=== PATIENT | female | born 1950 ===

== ENCOUNTER 2017-06-29 00:46 | Emergency (ER) | payer MEDICARE ==
[2017-06-29 00:46] VITALS: BMI 32.4
[2017-06-29 01:06] VITALS: BP 114/72; PULSE 58; RESP 18; TEMP 97.4; O2SAT 98
--- NOTE | 2017-06-29 01:44 | ED PDOC ---
HPI: CCC, URI, Sore Throat Time Seen by Provider: 06/29/17 01:12 Chief Complaint (Nursing): Cough, Cold, Congestion History Per: Patient History/Exam Limitations: no limitations Onset/Duration Of Symptoms: Days Current Symptoms Are (Timing): Still Present Location Of Pain: Throat Associated Symptoms: Fever, Sore Throat, Cough, Sputum (clear) Additional Complaint(s): pt. arrives with daughter w/ complaints of mainly sore throat, also with cough productive of clear phlegm. resolved fevers, no chills. no recent travel or sick contacts. no n/v/d. no cp/sob. received flu shot last month. Past Medical History Reviewed: Historical Data, Nursing Documentation Vital Signs: Last Vital Signs Temp 97.4 F L 06/29/17 01:00 Pulse 58 L 06/29/17 01:00 Resp 18 06/29/17 01:00 BP 114/72 06/29/17 01:00 Pulse Ox 98 06/29/17 01:44 - Medical History PMH: HTN, Hyperthyroidism Denies: Chronic Kidney Disease - Family History Family History: States: Unknown Family Hx - Immunization History Hx Tetanus Toxoid Vaccination: No Hx Influenza Vaccination: No Hx Pneumococcal Vaccination: No - Home Medications Home Medications: Ambulatory Orders Medication Instructions Recorded Losartan/Hydrochlorothiazide 1 tab PO DAILY 11/15/15 [Losartan-Hctz 100-12.5 mg Tab] Multivitamin [Multivitamins] 1 tab PO DAILY 11/15/15 methIMAzole [Tapazole] 10 mg PO DAILY 11/15/15 Ferrous Sulfate [Feosol] 325 mg PO DAILY 11/22/15 Pilocarpine [Salagen] 5 mg PO QID 11/22/15 Benzonatate [Tessalon Perle] 100 mg PO TID #20 capsule 06/29/17 Ibuprofen [Motrin Tab] 600 mg PO Q6 #30 tab 06/29/17 - Allergies Allergies/Adverse Reactions: Allergies Allergy/AdvReac Type Severity Reaction Status Date / Time Iodine and Iodide Containing Allergy SHORTNESS Verified 06/29/17 01:00 Produc OF BREATH Penicillins Allergy SHORTNESS Verified 06/29/17 01:00 OF BREATH Curb-65 Severity Score - CURB-65 Severity Score Confusion: No Bun >19mg/dl (>7mmol/L): No Respiratory Rate greater than/equal to 30: No Systolic BP <90 or Diastolic BP less than/equal 60mmHg: No Age >64: No Curb-65 Score: 0 Percentage 30-day mortality: 0.6% Review of Systems ROS Statement: Except As Marked, All Systems Reviewed And Found Negative ENT: Positive for: Throat Pain Respiratory: Positive for: Cough Physical Exam - Physical Exam Appears: Positive for: Well, Non-toxic, No Acute Distress Head Exam: Positive for: ATRAUMATIC, NORMAL INSPECTION, NORMOCEPHALIC Skin: Positive for: Normal Color, Warm, DRY Eye Exam: Positive for: EOMI, Normal appearance, PERRL ENT: Positive for: Normal ENT Inspection Neck: Positive for: Normal, Painless ROM Cardiovascular/Chest: Positive for: Regular Rate, Rhythm Respiratory: Positive for: CNT, Normal Breath Sounds Gastrointestinal/Abdominal: Positive for: Normal Exam, Bowel Sounds, Soft Back: Positive for: Normal Inspection Extremity: Positive for: Normal ROM Neurologic/Psych: Positive for: Alert, Oriented - ECG O2 Sat by Pulse Oximetry: 98 Pulse Ox Interpretation: Normal Medical Decision Making Medical Decision Making: A/P: Pt. arriving with sore throat, cough, congestion -completely normal vital signs and PE -explained to patient symptoms are likely viral -will get CXR to r/o PNA and rapid strep and influenza 230 Results explained to pt, encouraged f/u w/ PMD in 2 days. Return precautions discussed. Disposition - Clinical Impression Clinical Impression: Cough - Disposition Referrals: Fredis Montes MD [Staff Provider] - Disposition: Routine/Home Disposition Time: 02:30 Condition: STABLE Prescriptions: Benzonatate [Tessalon Perle] 100 mg PO TID #20 capsule Ibuprofen [Motrin Tab] 600 mg PO Q6 #30 tab Instructions: Upper Respiratory Infection (ED), Acute Cough (ED) Forms: [employer] (Jamaican) Print Language: UGANDAN
--- NOTE | 2017-06-29 10:19 | RAD ---
HISTORY: cough, sore throat, fever COMPARISON: Chest radiographs 06/27/2016. TECHNIQUE: Chest PA and lateral FINDINGS: LUNGS: No active pulmonary disease. PLEURA: No significant pleural effusion identified. No pneumothorax apparent. CARDIOVASCULAR: Normal. OSSEOUS STRUCTURES: No significant abnormalities. VISUALIZED UPPER ABDOMEN: Normal. OTHER FINDINGS: None. IMPRESSION: No interval acute cardiopulmonary disease appreciated.
== END 2017-06-29 03:10 | disposition home or self-care (01) ==
LOC: H.ER 00:46
DX: R05 Cough (principal); E05.90 Thyrotoxicosis, unspecified without thyrotoxic crisis or storm; I10 Essential (primary) hypertension; Z88.0 Allergy status to penicillin

== ENCOUNTER 2018-03-24 14:37 | Emergency (ER) | payer MEDICARE ==
[2018-03-24 14:37] VITALS: BMI 31.6
[2018-03-24] MEDS ORDERED: Naproxen 500 MG TAB PO STA (15:40)
[2018-03-24] MEDS ORDERED: Naproxen 500 MG TAB PO ONE (15:57)
--- NOTE | 2018-03-24 15:57 | RAD ---
Date of service: 03/24/2018 PROCEDURE: Radiographs of the Right Shoulder HISTORY: joint pain COMPARISON: 08/05/2008 FINDINGS: BONES: Bone alignment and mineralization are normal. There is no acute displaced fracture or bone destruction. JOINTS: There is mild degenerative osteoarthrosis in the acromioclavicular joint. There are degenerative cystic changes in the greater tuberosity of the humerus. The glenohumeral joint is normal. SOFT TISSUES: Normal. OTHER FINDINGS: None. IMPRESSION: Mild degenerative osteoarthrosis in the acromioclavicular joint. No acute fracture or dislocation
--- NOTE | 2018-03-24 16:01 | ED PDOC ---
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 Patient states pain worsens with movement. Patient reports of taking Tylenol earlier this morning with no relief. Patient is also right hand dominant. Patient is expressing concern that her high blood pressure was contributing to her symptoms, however, readings at home and in the ED were normal. Otherwise: (-) prior shoulder injury/surgery, (- ) chest pain, (-) shortness of breath, (-) falls, (-) headache, (-) neck pain, ( -) fever, (-) chills. PMD: Fredis Montes Past Medical History Reviewed: Historical Data, Nursing Documentation, Vital Signs Vital Signs: Last Vital Signs Temp 97.5 F L 03/24/18 14:54 Pulse 56 L 03/24/18 14:54 Resp 20 03/24/18 14:54 BP 134/74 03/24/18 14:54 Pulse Ox 99 03/24/18 14:54 - Medical History PMH: HTN, Hypercholesterolemia, Hyperthyroidism - Surgical History Surgical History: Hernia Repair Other surgeries: Gastric Bypass - Family History Family History: States: Unknown Family Hx - Home Medications Home Medications: Ambulatory Orders Medication Instructions Recorded Losartan/Hydrochlorothiazide 1 tab PO DAILY 11/15/15 [Losartan-Hctz 100-12.5 mg Tab] Multivitamin [Multivitamins] 1 tab PO DAILY 11/15/15 methIMAzole [Tapazole] 10 mg PO DAILY 11/15/15 Ferrous Sulfate [Feosol] 325 mg PO DAILY 11/22/15 Pilocarpine [Salagen] 5 mg PO QID 11/22/15 Benzonatate [Tessalon Perle] 100 mg PO TID #20 capsule 06/29/17 Ibuprofen [Motrin Tab] 600 mg PO Q6 #30 tab 06/29/17 Aspirin [Aspirin Chewable] 81 mg PO 01/03/18 Cholecalciferol [Vitamin D] 50,000 iu PO 01/03/18 Iron Ps Cmplx/Vit B12/FA [Ferrex 01/03/18 150 Forte Capsule] Meloxicam [Mobic] 15 mg PO DAILY #10 tab 03/24/18 - Allergies Allergies/Adverse Reactions: Allergies Allergy/AdvReac Type Severity Reaction Status Date / Time Iodine and Iodide Containing Allergy SHORTNESS Verified 06/29/17 01:00 Produc OF BREATH Penicillins Allergy SHORTNESS Verified 06/29/17 01:00 OF BREATH Review of Systems ROS Statement: Except As Marked, All Systems Reviewed And Found Negative Constitutional: Negative for: Fever, Chills Cardiovascular: Negative for: Chest Pain Respiratory: Negative for: Shortness of Breath Musculoskeletal: Positive for: Shoulder Pain (right ). Negative for: Neck Pain Neurological: Negative for: Headache Physical Exam - Reviewed Nursing Documentation Reviewed: Yes Vital Signs Reviewed: Yes - Physical Exam Comments: GENERAL APPEARANCE: Patient is resting comfortably, awake, alert, oriented x 3, in no acute distress. SKIN: Warm, dry; (-) cyanosis. NECK: Supple, FROM ENT: Mucus membranes moist. Airway patent, (-) stridor. SHOULDER: (+) Pain with abduction and extension of the right shoulder otherwise ROM is intact. (+) Diffuse Tenderness, (-) erythema, (-) overlying skin changes , (-) effusion, (-) ecchymosis, (-) deformity. Remainder of upper extremity: (- ) tenderness with full ROM. Sensation intact throughout (+) distal pulses. RESPIRATORY: (-) rales (-) rhonchi (-) wheezing; breath sounds equal bilaterally. Respirations even and nonlabored, speaking in full sentences. CARDIAC: (-) irregularity NEURO AND PSYCH: Mental status as above. (-) facial asymmetry (-) focal deficit. Speech clear, gait steady. - ECG O2 Sat by Pulse Oximetry: 99 (RA) Pulse Ox Interpretation: Normal Medical Decision Making Medical Decision Making: Time: 1540 Impression: Acute Shoulder Pain Plan: -- Naproxen 500 mg PO -- Shoulder Right XR -- Re-evaluation 1600 Shoulder XR reviewed, radiology report follows Date of service: 03/24/2018 PROCEDURE: Radiographs of the Right Shoulder HISTORY: joint pain COMPARISON: 08/05/2008 FINDINGS: BONES: Bone alignment and mineralization are normal. There is no acute displaced fracture or bone destruction. JOINTS: There is mild degenerative osteoarthrosis in the acromioclavicular joint. There are degenerative cystic changes in the greater tuberosity of the humerus. The glenohumeral joint is normal. SOFT TISSUES: Normal. OTHER FINDINGS: None. IMPRESSION: Mild degenerative osteoarthrosis in the acromioclavicular joint. No acute fracture or dislocation On re-evaluation, patient reports improvement of symptoms. On exam, patient remains AAOx3, in no acute distress. On exam, neck is supple, lungs CTA, cardiac RRR, neuro exam shows no focal findings. VSS, stable for discharge. Diagnostic results d/w the patient in great detail. Dx of acute shoulder pain, osteoarthritis d/w the patient. Based on history, exam and diagnostic results plan will be for discharge and outpatient follow up. Advised to follow up with primary care physician in 1-2 days without fail. Advised to take medication as prescribed. Return to the emergency room at any time for any new or worsening symptoms. Patient states she fully agrees with and understands discharge instructions. States that she agrees with the plan and disposition. Verbalized and repeated discharge instructions and plan. I have given the patient opportunity to ask any additional questions. Scribe Attestation: Documented by Vladimir Valdez, acting as a scribe for Ely Sosa PA-C. Provider Scribe Attestation: All medical record entries made by the Scribe were at my direction and personally dictated by me. I have reviewed the chart and agree that the record accurately reflects my personal performance of the history, physical exam, medical decision making, and the department course for this patient. I have also personally directed, reviewed, and agree with the discharge instructions and disposition. Disposition - Clinical Impression Clinical Impression: Shoulder pain, Osteoarthritis - Patient ED Disposition Is Patient to be Admitted: No Counseled Patient/Family Regarding: Studies Performed, Diagnosis, Need For Followup, Rx Given - Disposition Referrals: Booker Alatorre MD [Medical Doctor] - Fredis Montes MD [Staff Provider] - Disposition: Routine/Home Disposition Time: 16:02 Condition: STABLE Additional Instructions: La atencin mdica de emergencia que recibi hoy estaba dirigida a polina sntomas agudos. Si le prescribieron algn medicamento, llnelo y tome segn las indicaciones. Polina sntomas pueden tardar varios hoyt en resolverse. Regrese al Departamento de Emergencia si polina sntomas empeoran, no mejoran o si tiene alg n otro problema. Comunquese con reveles mdico en 2 hoyt para em reevaluacin y seguimiento / o llame a cha de los mdicos / clnicas a los que painter referido y que figura en el formulario de Informacin de visitas del paciente que se incluye en reveles paquete de mercy. Traiga todos los documentos que recibi al momento del mercy junto con los medicamentos que est tomando en reveles visita de seguimiento. Nuestro tratamiento no puede reemplazar la atencin mdica en curso por parte de un proveedor de atencin primaria (PCP) fuera del departamento de emergencias. Prescriptions: Meloxicam [Mobic] 15 mg PO DAILY #10 tab Instructions: Osteoarthritis, Shoulder Pain (DC) Forms: [employer] (Malawian) Print Language: [place] - POA Present On Arrival: None
[2018-03-24 16:22] VITALS: BP 130/72; PULSE 70; RESP 18; TEMP 98
[2018-03-25 19:06] VITALS: O2SAT 99
== END 2018-03-24 16:22 | disposition home or self-care (01) ==
LOC: H.ER 14:37
DX: M19.011 Primary osteoarthritis, right shoulder (principal)

== ENCOUNTER 2018-06-30 08:10 | Day surgery (SDC) | payer MEDICARE ==
[2018-06-30] MEDS ORDERED: Lactated Ringer's 500 ML IV ONE (08:58)
[2018-06-30 09:04] VITALS: O2SAT 100
[2018-06-30] MEDS ORDERED: Propofol 10 mg/ml Inj (20 ML) ONE (11:20)
[2018-06-30 11:51] VITALS: TEMP 97
[2018-07-01 00:06] VITALS: BP 126/58; PULSE 52; RESP 17
== END 2018-06-30 12:30 | disposition home or self-care (01) ==
LOC: H.ENDO 08:10
PROVIDERS: ATTEND Internal Medicine Gastroenterology
DX: Z12.11 Encounter for screening for malignant neoplasm of colon (principal); E78.5 Hyperlipidemia, unspecified; I10 Essential (primary) hypertension; E05.90 Thyrotoxicosis, unspecified without thyrotoxic crisis or storm; K64.8 Other hemorrhoids
CPT/HCPCS: 45378; J2001; J2704; J7120

== ENCOUNTER 2018-12-04 13:09 | Emergency (ER) | payer MEDICARE ==
[2018-12-04 13:10] VITALS: BMI 31.6
[2018-12-04 13:18] VITALS: TEMP 99.2; O2SAT 98
[2018-12-04] MEDS ORDERED: Sodium Chloride 0.9% 1,000 ML IV STA (13:54)
--- NOTE | 2018-12-04 13:56 | ED PDOC ---
HPI: Abdomen Chief Complaint (Provider): Vomiting History Per: Patient Additional Complaint(s): 68 yo female, PMh of HTN, presents to the ED complaining of nausea and vomiting since saturday. Also reports epigastric "soreness." Denies fever or diarrhea. <Norah Mills - Last Filed: 12/04/18 13:56> <Spencer Jurado III - Last Filed: 01/07/19 11:33> Time Seen by Provider: 12/04/18 13:43 Chief Complaint (Nursing): GI Problem Past Medical History Vital Signs: Last Vital Signs Temp 99.2 F 12/04/18 13:17 Pulse 65 12/04/18 13:17 Resp 19 12/04/18 13:17 BP 169/93 H 12/04/18 13:17 Pulse Ox 98 12/04/18 13:17 - Medical History PMH: HTN, Hypercholesterolemia, Hyperthyroidism Denies: Chronic Kidney Disease - Surgical History Surgical History: Hernia Repair - Family History Family History: States: Unknown Family Hx - Immunization History Hx Tetanus Toxoid Vaccination: No Hx Influenza Vaccination: No Hx Pneumococcal Vaccination: No <GeneNorah Rader - Last Filed: 12/04/18 13:56> Vital Signs: Last Vital Signs Temp 99.2 F 12/04/18 13:17 Pulse 68 12/04/18 19:00 Resp 18 12/04/18 19:00 BP 148/64 12/04/18 19:00 Pulse Ox 98 12/04/18 19:00 <Spencer Jurado III - Last Filed: 01/07/19 11:33> - Home Medications Home Medications: Ambulatory Orders Medication Instructions Recorded methIMAzole [Tapazole] 10 mg PO DAILY 11/15/15 Iron Ps Cmplx/Vit B12/FA [Ferrex 150 mg PO DAILY 01/03/18 150 Forte Capsule] Losartan/Hydrochlorothiazide 1 tab PO DAILY 06/30/18 [Hyzaar 25 mg-100 mg] Ondansetron ODT [Zofran ODT] 8 mg PO Q8 PRN #10 odt 12/04/18 - Allergies Allergies/Adverse Reactions: Allergies Allergy/AdvReac Type Severity Reaction Status Date / Time Iodine and Iodide Containing Allergy ANAPHYLAXIS Verified 12/04/18 13:16 Produc Penicillins Allergy ANAPHYLAXIS Verified 12/04/18 13:16 - ECG O2 Sat by Pulse Oximetry: 98 <Norah Mills - Last Filed: 12/04/18 13:56> - Laboratory Results Result Diagrams: 12/04/18 14:00 12/04/18 14:00 Lab Results: Total Bilirubin 1.3 mg/dl (0.2-1.3) 12/04/18 14:00 AST 34 U/L (14-36) 12/04/18 14:00 ALT 33 U/L (9-52) 12/04/18 14:00 Alkaline Phosphatase 94 U/L (38-126) 12/04/18 14:00 Total Protein 8.1 G/DL (6.3-8.2) 12/04/18 14:00 Albumin 4.4 g/dL (3.5-5.0) 12/04/18 14:00 Globulin 3.7 gm/dL (2.2-3.9) 12/04/18 14:00 Albumin/Globulin Ratio 1.2 (1.0-2.1) 12/04/18 14:00 Urine Color Bharati (YELLOW) 12/04/18 17:10 Urine Clarity Slighty-cloudy (Clear) 12/04/18 17:10 Urine pH 5.0 (5.0-8.0) 12/04/18 17:10 Ur Specific [place] 1.033 (1.003-1.030) H 12/04/18 17:10 Urine Protein 30 mg/dL (NEGATIVE) 12/04/18 17:10 Urine Glucose (UA) Neg mg/dL (NEGATIVE) 12/04/18 17:10 Urine Ketones 80 mg/dL (NEGATIVE) 12/04/18 17:10 Urine Blood Negative (NEGATIVE) 12/04/18 17:10 Urine Nitrate Negative (NEGATIVE) 12/04/18 17:10 Urine Bilirubin Negative (NEGATIVE) 12/04/18 17:10 Urine Urobilinogen 0.2-1.0 mg/dL (0.2-1.0) 12/04/18 17:10 Ur Leukocyte Esterase Neg Flores/uL (Negative) 12/04/18 17:10 Urine RBC (Auto) 2 /hpf (0-3) 12/04/18 17:10 Urine Microscopic WBC 3 /hpf (0-5) 12/04/18 17:10 Ur Squamous Epith Cells 4 /hpf (0-5) 12/04/18 17:10 Urine Bacteria Occ (<OCC) H 12/04/18 17:10 <Spencer Jurado III - Last Filed: 01/07/19 11:33> Disposition <Norah Mills - Last Filed: 12/04/18 13:56> - Patient ED Disposition Is Patient to be Admitted: No <Spencer Jurado III - Last Filed: 01/07/19 11:33> - Clinical Impression Clinical Impression: Nausea & vomiting - Disposition Condition: STABLE Prescriptions: Ondansetron ODT [Zofran ODT] 8 mg PO Q8 PRN #10 odt PRN Reason: Nausea/Vomiting Instructions: Nausea and Vomiting, Adult (DC) Forms: [facility] (Kyrgyz) Print Language: MALTESE
[2018-12-04 14:42] LABS: BASO % 0.6 % (0.0-2.0); EOS % 0.8 % (0.0-4.0); HEMOGLOBIN 13.3 g/dL (12.0-16.0); LYMPH # 2.6 K/uL (1.0-4.3); LYMPH % 48.1 % (20.0-40.0); MEAN CELL VOLUME 91.2 fl (81.0-99.0); MEAN CORPUSCULAR HEMOGLOBIN 30.5 pg (27.0-31.0); MEAN CORPUSCULAR HGB CONC 33.5 g/dL (33.0-37.0); MEAN PLATELET VOLUME 10.3 fl (7.2-11.7); MONO # 0.5 K/uL (0.0-0.8); MONO % 8.8 % (0.0-10.0); NEUT # 2.3 K/uL (1.8-7.0); NEUT % 41.7 % (50.0-75.0); NRBC % 0.6 % (0.0-0.0); RBC 4.35 Mil/uL (3.80-5.20); RED CELL DISTRIBUTION WIDTH 14.7 % (11.5-14.5); WHITE BLOOD COUNT 5.4 K/uL (4.8-10.8)
[2018-12-04 14:50] LABS: ALB/GLOB RATIO 1.2 (1.0-2.1); ALBUMIN 4.4 g/dL (3.5-5.0); ALT/SGPT 33 U/L (9-52); AST/SGOT 34 U/L (14-36); BLOOD UREA NITROGEN 17 mg/dl (7-17); CALCIUM 9.9 mg/dL (8.4-10.2); GFR NON-AFRICAN AMERICAN > 60
[2018-12-04] MEDS ORDERED: Potassium Chloride 20 mEq ER Tab PO ONE ×2 (15:59→16:50)
[2018-12-04 17:41] LABS: SQUAMOUS EPITHIAL 4 /hpf (0-5); URINE BACTERIA OCC (<OCC); URINE BILIRUBIN NEGATIVE (NEGATIVE); URINE BLOOD NEGATIVE (NEGATIVE); URINE CLARITY SLIGHTY-CLOUDY (Clear); URINE COLOR AMBER (YELLOW); URINE GLUCOSE (UA) NEG (NEGATIVE); URINE LEUKOCYTE ESTERASE NEG Leu/uL (Negative); URINE PROTEIN 30 mg/dL (NEGATIVE); URINE UROBILINOGEN 0.2-1.0 mg/dL (0.2-1.0)
[2018-12-04 19:04] VITALS: BP 148/64; PULSE 68; RESP 18
== END 2018-12-04 19:02 | disposition home or self-care (01) ==
LOC: H.ER 13:09
DX: R11.2 Nausea with vomiting, unspecified (principal)
CPT/HCPCS: 80053; 81003; 85025; 96374; 96375; 96376; 99284; J2405; J2765; J7030